=== PATIENT | female | born 1970 | race African-American/Black ===

== ENCOUNTER 2021-01-17 19:30 | Outpatient (CLI) | payer MEDICARE | END 2021-01-17 19:31 | disposition home or self-care (01) | LOC: SLEEPLAB 19:30 | PROVIDERS: ATTEND Physician Assistant | DX: G47.33 Obstructive sleep apnea (adult) (pediatric) (principal); R09.89 Other specified symptoms and signs involving the circulatory and respiratory systems; R53.83 Other fatigue; G47.10 Hypersomnia, unspecified; G47.00 Insomnia, unspecified; R06.83 Snoring; I10 Essential (primary) hypertension; E11.9 Type 2 diabetes mellitus without complications; E66.9 Obesity, unspecified; Z68.39 Body mass index [BMI] 39.0-39.9, adult | CPT/HCPCS: 95810 ==

== ENCOUNTER 2023-03-09 13:50 | Outpatient (CLI) | payer MEDICARE | END 2023-03-09 13:51 | disposition home or self-care (01) | LOC: RAD 13:50 | PROVIDERS: ATTEND Student in an Organized Health Care Education/Training Program | DX: J98.59 Other diseases of mediastinum, not elsewhere classified (principal) | CPT/HCPCS: 71046 ==

== ENCOUNTER 2023-03-16 14:30 | Outpatient (CLI) | payer MEDICARE | END 2023-03-16 14:31 | disposition home or self-care (01) | LOC: LABBT 14:30 | PROVIDERS: ATTEND Student in an Organized Health Care Education/Training Program | DX: Z01.818 Encounter for other preprocedural examination (principal); J98.59 Other diseases of mediastinum, not elsewhere classified | CPT/HCPCS: 80048; 85027; 86850; 86900; 86901; 93005; 93010 ==

== ENCOUNTER 2023-03-16 14:30 | Inpatient (IN) | payer MEDICARE ==
[2023-03-16 16:57] LABS: Hematocrit 33.7 % (34.9-44.5); Hemoglobin 10.6 g/dL (12.0-15.5); Mean Corpuscular HGB CONC 31.5 g/dL (32.0-36.0); Mean Corpuscular Hemoglobin 25.7 pg (27.0-33.0); Mean Corpuscular Volume 81.6 fl (81.6-98.3); Mean Platelet Volume 10.2 fl (7.4-10.4); Platelet Count 417 10x3/uL (150-450); Red Blood Cell (RBC) Count 4.13 10x6/uL (3.90-5.03); White Blood Cell (WBC) Count 5.7 10x3/uL (3.5-10.5)
[2023-03-16 17:21] LABS: Anion Gap 15 mmol/L (10-20); BUN (Urea Nitrogen) 16 mg/dL (9.8-20.1); Calc. Creatinine Clearance 0 mL/min (70-130); Calcium 8.5 mg/dL (7.8-10.44); Carbon Dioxide 26 mmol/L (22-29); Chloride 104 mmol/L (98-107); Estimated GFR 59; Glucose 70 mg/dL (70-105); Sodium 141 mmol/L (136-145)
[2023-03-18] MEDS ORDERED: EPINEPHrine 1 MG/ML VIAL ONE (12:02)
[2023-03-18] MEDS ORDERED: Bupivacaine 0.25% HCL 30 ML VIAL ONE (12:02)
[2023-03-18] MEDS ORDERED: Sodium Chloride 0.9% 100 ML ONE (12:17)
[2023-03-18] MEDS ORDERED: CEFAZOLIN 2 GM VIAL ONE (12:17)
[2023-03-18] MEDS ORDERED: Midazolam HCl 2 mg/2 ml Vial ONE (12:20)
[2023-03-18] MEDS ORDERED: fentaNYL 50 mcg/mL 1 mL Vial ONE (12:21)
[2023-03-18] MEDS ORDERED: PROPOFOL 20 ML ONE ×2 (12:28→14:43)
[2023-03-18] MEDS ORDERED: SUCCINYLCHOLINE/SOD CL,ISO/PF 200 MG/10 ML SYRINGE FS ONE (12:40)
[2023-03-18] MEDS ORDERED: Promethazine HCl 25 MG/ML VIAL IM PRN ×2 (13:05→18:30)
[2023-03-18] MEDS ORDERED: Ondansetron HCl/PF 4 MG/2 ML Vial IVP PRN (13:05)
[2023-03-18] MEDS ORDERED: PHENYLEPHRINE-NS 100 MCG/ML 10 ML SYRINGE ONE (13:08)
[2023-03-18] MEDS ORDERED: fentaNYL PF 100 MCG/2 ML SYRINGE ONE ×3 (13:14→15:22)
[2023-03-18] MEDS ORDERED: Rocuronium Bromide 10 MG/ML (10ML VIAL) ONE (13:20)
[2023-03-18] MEDS ORDERED: Albumin 5% 500 ML ONE (13:21)
[2023-03-18] MEDS ORDERED: SUGAMMADEX SODIUM 200 MG/2 ML VIAL ONE ×2 (14:59)
[2023-03-18] MEDS ORDERED: Dexamethasone 20 MG/5 ML VIAL ONE (15:32)
[2023-03-18] MEDS ORDERED: Mineral Oil ENEMA PR PRN (15:32)
[2023-03-18] MEDS ORDERED: Milk Of Magnesia 30 ML UDCUP PO PRN (15:32)
[2023-03-18] MEDS ORDERED: Ondansetron PF 4 MG/2 ML Vial IVP PRN ×2 (15:32→18:30)
[2023-03-18] MEDS ORDERED: Bisacodyl 10 MG SUPP PR PRN (15:32)
[2023-03-18] MEDS ORDERED: traMADol HCl 50 MG TAB PO PRN ×2 (15:32)
[2023-03-18] MEDS ORDERED: Ondansetron PF 4 MG/2 ML Vial ONE (15:32)
[2023-03-18] MEDS ORDERED: Fentanyl 250 MCG/5 ML VIAL ONE (15:45)
[2023-03-18] MEDS ORDERED: Morphine 2 MG/ML VIAL ONE ×3 (16:18→16:56)
[2023-03-18] MEDS ORDERED: Ketorolac Tromethamine 30 MG (1 mL) VIAL ONE (16:37)
[2023-03-18] MEDS: Ketorolac Tromethamine 30 MG (1 mL) VIAL IVP SCH ×2 (16:40→23:23)
[2023-03-18 16:43] LABS: #Eosinphils 0.1 thou/uL (0.0-0.7); #Monocytes 0.6 thou/uL (0.11-0.59); #Neutrophils 10.1 thou/uL (1.40-6.50); %Basophils 0.3 % (0.0-1.0); %Eosinophils 0.6 % (0.0-10.0); %Lymphocytes 11.7 % (21.0-51.0); %Monocytes 4.6 % (0.0-10.0); %Neutrophils 82.4 % (42.0-75.0); Hematocrit 30.5 % (36.0-47.0); Hemoglobin 9.5 g/dL (12.0-16.0); Mean Corpuscular HGB CONC 31.1 g/dL (32.0-36.0); Mean Corpuscular Hemoglobin 25.9 pg (27.0-31.0); Mean Corpuscular Volume 83.1 fl (78.0-98.0); Mean Platelet Volume 9.7 fL (7.4-10.4); Platelet Count 380 10x3/uL (130-400); RBC Distribution Width 16.9 % (11.5-14.5); Red Blood Cell (RBC) Count 3.67 mill/uL (4.20-5.40); White Blood Cell (WBC) Count 12.3 10x3/uL (4.8-10.8)
[2023-03-18] MEDS ORDERED: Lidocaine 4% Patch TD SCH (16:45)
[2023-03-18 17:04] LABS: Anion Gap 14 mmol/L (10-20); BUN (Urea Nitrogen) 8 mg/dL (9.8-20.1); Calc. Creatinine Clearance 129 mL/min (70-130); Calcium 7.9 mg/dL (7.8-10.44); Carbon Dioxide 21 mmol/L (22-29); Chloride 108 mmol/L (98-107); Estimated GFR 88; Glucose 129 mg/dL (70-105); Potassium 3.5 mmol/L (3.5-5.1); Sodium 139 mmol/L (136-145)
[2023-03-18] MEDS ORDERED: HYDROmorphone 0.5 MG/0.5 ML SYRINGE ONE ×2 (17:09→17:39)
[2023-03-18] MEDS ORDERED: Methocarbamol 500 MG TAB PO SCH (18:15)
[2023-03-18] MEDS ORDERED: Gabapentin 300 MG CAP PO SCH (18:15)
[2023-03-18] MEDS ORDERED: Gabapentin 300 MG CAP ONE (18:22)
[2023-03-18] MEDS ORDERED: Acetaminophen 500 MG TAB ONE (18:25)
[2023-03-18] MEDS ORDERED: diphenhydrAMINE 25 MG CAP PO PRN (18:30)
[2023-03-18] MEDS ORDERED: diphenhydrAMINE 50 MG/ML VIAL IM/IV PRN (18:30)
[2023-03-18] MEDS ORDERED: Zolpidem Tartrate 5 MG TAB PO PRN (18:30)
[2023-03-18] MEDS ORDERED: Naloxone HCl 0.4 mg/ml Vial IV PRN (18:30)
[2023-03-18] MEDS: Acetaminophen 500 MG TAB PO SCH ×2 (18:33→23:23)
[2023-03-18] MEDS: Ipratropium/Albuterol 3 ML NEB NEB SCH (18:49)
[2023-03-18] MEDS ORDERED: Pregabalin 75 MG CAP PO SCH (21:00)
[2023-03-18] MEDS: CEFAZOLIN 2 GM in Sodium Chloride 0.9% 100 ML IVPB SCH (22:41)
[2023-03-18] MEDS: Heparin 5,000 UNITS/ML VIAL SC SCH (22:41)
[2023-03-18] MEDS: Oxybutynin 5 MG TAB PO SCH (22:42)
[2023-03-18] MEDS: D5 0.9% NS w/ 20 mEq KCl 1,000 ML IV SCH (22:42)
[2023-03-19] MEDS: Ipratropium/Albuterol 3 ML NEB NEB SCH ×5 (00:04→23:03)
[2023-03-19] MEDS: CEFAZOLIN 2 GM in Sodium Chloride 0.9% 100 ML IVPB SCH ×2 (03:44→11:12)
[2023-03-19] MEDS: Fentanyl CADD 100 ML IVPB SCH ×2 (03:50→09:20)
[2023-03-19] MEDS: D5 0.9% NS w/ 20 mEq KCl 1,000 ML IV SCH (05:47)
[2023-03-19 05:48] LABS: #Monocytes 0.8 thou/uL (0.11-0.59); #Neutrophils 9.9 thou/uL (1.40-6.50); %Basophils 0.1 % (0.0-1.0); %Monocytes 6.7 % (0.0-10.0); %Neutrophils 84.7 % (42.0-75.0); Hematocrit 30.1 % (36.0-47.0); Hemoglobin 9.4 g/dL (12.0-16.0); Mean Corpuscular HGB CONC 31.2 g/dL (32.0-36.0); Mean Corpuscular Hemoglobin 25.3 pg (27.0-31.0); Mean Corpuscular Volume 81.1 fl (78.0-98.0); Platelet Count 400 10x3/uL (130-400); RBC Distribution Width 16.8 % (11.5-14.5); Red Blood Cell (RBC) Count 3.71 mill/uL (4.20-5.40); White Blood Cell (WBC) Count 11.7 10x3/uL (4.8-10.8)
[2023-03-19] MEDS ORDERED: Transdermal Patch Removal TOP SCH ×2 (06:00→19:30)
[2023-03-19 06:16] LABS: Anion Gap 13 mmol/L (10-20); BUN (Urea Nitrogen) 10 mg/dL (9.8-20.1); Calc. Creatinine Clearance 123 mL/min (70-130); Calcium 7.8 mg/dL (7.8-10.44); Carbon Dioxide 21 mmol/L (22-29); Chloride 104 mmol/L (98-107); Estimated GFR 83; Glucose 141 mg/dL (70-105); Potassium 3.9 mmol/L (3.5-5.1); Sodium 134 mmol/L (136-145)
[2023-03-19] MEDS: Ketorolac Tromethamine 30 MG (1 mL) VIAL IVP SCH ×4 (06:17→23:53)
[2023-03-19] MEDS: Acetaminophen 500 MG TAB PO SCH ×4 (06:18→23:54)
[2023-03-19] MEDS: Levothyroxine Sodium 75 MCG TAB PO SCH (06:18)
[2023-03-19] MEDS: Methocarbamol 500 MG TAB PO SCH ×4 (08:22→20:48)
[2023-03-19] MEDS: Gabapentin 300 MG CAP PO SCH ×3 (08:23→20:47)
[2023-03-19] MEDS: DULoxetine 60 MG CAP PO SCH (08:24)
[2023-03-19] MEDS: Heparin 5,000 UNITS/ML VIAL SC SCH ×3 (08:24→20:48)
[2023-03-19] MEDS: Oxybutynin 5 MG TAB PO SCH ×3 (08:24→20:48)
[2023-03-19] MEDS ORDERED: SALMETEROL INH SCH (09:00)
[2023-03-19] MEDS ORDERED: FLUTICASONE INH SCH (09:00)
[2023-03-19] MEDS: oxyCODONE 5 MG TAB PO PRN ×3 (14:14→22:34)
[2023-03-19] MEDS: Mometasone 200 MCG/Formoterol 5 MCG 120 PUFF INHALER INH SCH (19:07)
[2023-03-19] MEDS: Lidocaine 4% Patch TD SCH (20:47)
[2023-03-19 22:43] VITALS: BMI 42.0
[2023-03-20] MEDS: Ketorolac Tromethamine 30 MG (1 mL) VIAL IVP SCH ×4 (05:18→23:13)
[2023-03-20] MEDS: Acetaminophen 500 MG TAB PO SCH ×4 (05:18→23:14)
[2023-03-20] MEDS: Levothyroxine Sodium 75 MCG TAB PO SCH (05:19)
[2023-03-20] MEDS: Mometasone 200 MCG/Formoterol 5 MCG 120 PUFF INHALER INH SCH ×2 (06:55→19:04)
[2023-03-20] MEDS: Ipratropium/Albuterol 3 ML NEB NEB SCH ×4 (06:56→23:38)
[2023-03-20] MEDS: DULoxetine 60 MG CAP PO SCH (08:21)
[2023-03-20] MEDS: Oxybutynin 5 MG TAB PO SCH ×3 (08:21→21:27)
[2023-03-20] MEDS: Gabapentin 300 MG CAP PO SCH ×3 (08:21→21:28)
[2023-03-20] MEDS: oxyCODONE 5 MG TAB PO PRN ×3 (08:22→21:26)
[2023-03-20] MEDS: Methocarbamol 500 MG TAB PO SCH ×4 (08:22→21:27)
[2023-03-20] MEDS: Heparin 5,000 UNITS/ML VIAL SC SCH ×3 (08:23→21:25)
[2023-03-20] MEDS: Transdermal Patch Removal TOP SCH (09:30)
[2023-03-20] MEDS ORDERED: Lactulose 20 GM (30 mL) UDCUP PO SCH (14:30)
[2023-03-20] MEDS: Lidocaine 4% Patch TD SCH (21:24)
[2023-03-21] MEDS: Ketorolac Tromethamine 30 MG (1 mL) VIAL IVP SCH (04:06)
[2023-03-21] MEDS: Acetaminophen 500 MG TAB PO SCH (04:07)
[2023-03-21] MEDS: oxyCODONE 5 MG TAB PO PRN (04:08)
[2023-03-21] MEDS: Levothyroxine Sodium 75 MCG TAB PO SCH (04:08)
[2023-03-21] MEDS: Ipratropium/Albuterol 3 ML NEB NEB SCH ×2 (08:11→13:00)
[2023-03-21] MEDS: Mometasone 200 MCG/Formoterol 5 MCG 120 PUFF INHALER INH SCH (08:11)
[2023-03-21] MEDS: Methocarbamol 500 MG TAB PO SCH (09:33)
[2023-03-21] MEDS: Oxybutynin 5 MG TAB PO SCH (09:33)
[2023-03-21] MEDS: DULoxetine 60 MG CAP PO SCH (09:33)
[2023-03-21] MEDS: Gabapentin 300 MG CAP PO SCH (09:33)
[2023-03-21] MEDS: Heparin 5,000 UNITS/ML VIAL SC SCH (09:34)
[2023-03-21] MEDS: Transdermal Patch Removal TOP SCH (09:36)
[2023-03-21 12:17] VITALS: BP 162/96; TEMP 98.4
== END 2023-03-21 13:27 | disposition home or self-care (01) | DRG 165 ==
LOC: SURG A 03-18 09:59 → EDSTATUS 03-18 14:30 → 2NO 03-18 20:32
PROVIDERS: ADMIT Student in an Organized Health Care Education/Training Program; ATTEND Student in an Organized Health Care Education/Training Program
PROC: 07BM4ZZ Excision of Thymus, Percutaneous Endoscopic Approach (ICD-10-PCS; principal; 2023-03-18)
PROC: 8E0W4CZ Robotic Assisted Procedure of Trunk Region, Percutaneous Endoscopic Approach (ICD-10-PCS; 2023-03-18)
PROC: 3E033XZ Introduction of Vasopressor into Peripheral Vein, Percutaneous Approach (ICD-10-PCS; 2023-03-18)
PROC: 30233J1 Transfusion of Nonautologous Serum Albumin into Peripheral Vein, Percutaneous Approach (ICD-10-PCS; 2023-03-18)
PROC: 07B74ZX Excision of Thorax Lymphatic, Percutaneous Endoscopic Approach, Diagnostic (ICD-10-PCS; 2023-03-18)
DX: J98.59 Other diseases of mediastinum, not elsewhere classified (principal); E11.9 Type 2 diabetes mellitus without complications; E04.1 Nontoxic single thyroid nodule; G47.30 Sleep apnea, unspecified; E03.9 Hypothyroidism, unspecified; M54.9 Dorsalgia, unspecified; T80.89XA Other complications following infusion, transfusion and therapeutic injection, initial encounter; R33.9 Retention of urine, unspecified; G89.29 Other chronic pain; N32.89 Other specified disorders of bladder; Z98.890 Other specified postprocedural states; Z82.49 Family history of ischemic heart disease and other diseases of the circulatory system; Z83.3 Family history of diabetes mellitus; Y83.8 Other surgical procedures as the cause of abnormal reaction of the patient, or of later complication, without mention of misadventure at the time of the procedure
CPT/HCPCS: 36415; 36416; 71045; 80048; 85025; 85027; 86850; 86900; 86901; 88184; 88305; 88307; 94640; 94664; J0171; J0665; J1100; J1170; J1644; J1885; J2250; J2272; J2405; J2704; J3010; J3480; J3490; J7620; P9045

== ENCOUNTER 2023-03-25 14:00 | Inpatient (IN) | payer MEDICARE ==
[~2023-03-25 14:00] MED LIST: Iopamidol-370 76% 500 ML MDV (1 ML CHARGE) ONE
[2023-03-25 14:28] LABS: #Basophils 0.1 thou/uL (0.0-0.2); #Eosinphils 0.3 thou/uL (0.0-0.7); #Monocytes 0.7 thou/uL (0.11-0.59); #Neutrophils 7.3 thou/uL (1.40-6.50); %Basophils 0.5 % (0.0-1.0); %Eosinophils 3.1 % (0.0-10.0); %Lymphocytes 15.6 % (21.0-51.0); %Monocytes 6.7 % (0.0-10.0); %Neutrophils 73.4 % (42.0-75.0); Hematocrit 34.1 % (36.0-47.0); Hemoglobin 10.7 g/dL (12.0-16.0); Mean Corpuscular HGB CONC 31.4 g/dL (32.0-36.0); Mean Corpuscular Hemoglobin 25.2 pg (27.0-31.0); Mean Corpuscular Volume 80.4 fl (78.0-98.0); Mean Platelet Volume 9.9 fL (7.4-10.4); Platelet Count 380 10x3/uL (130-400); RBC Distribution Width 17.4 % (11.5-14.5); Red Blood Cell (RBC) Count 4.24 mill/uL (4.20-5.40); White Blood Cell (WBC) Count 9.9 10x3/uL (4.8-10.8)
[2023-03-25 14:54] LABS: ALT (SGPT) 11 U/L (8-55); AST (SGOT) 16 U/L (5-34); Albumin 3.5 g/dL (3.5-5.0); Alkaline Phosphatase 80 U/L (40-110); Anion Gap 14 mmol/L (10-20); BUN (Urea Nitrogen) 10 mg/dL (9.8-20.1); Bilirubin, Total 0.5 mg/dL (0.2-1.2); Calc. Creatinine Clearance 0 mL/min (70-130); Calcium 9.5 mg/dL (7.8-10.44); Carbon Dioxide 27 mmol/L (22-29); Chloride 97 mmol/L (98-107); Estimated GFR 85; Globulin 3.5 g/dL (2.4-3.5); Glucose 79 mg/dL (70-105); Magnesium 1.6 mg/dL (1.6-2.6); Potassium 4.1 mmol/L (3.5-5.1); Sodium 134 mmol/L (136-145)
[2023-03-25 14:57] LABS: Troponin I Less than 0.010 ng/mL (< 0.028)
[2023-03-25] MEDS ORDERED: Ondansetron PF 4 MG/2 ML Vial ONE (15:47)
[2023-03-25] MEDS ORDERED: Morphine 4 MG/ML VIAL ONE ×2 (15:47→18:17)
[2023-03-25] MEDS ORDERED: Sodium Chloride 0.9% 100 ML ONE (18:18)
[2023-03-25] MEDS ORDERED: Cefepime 2 GM VIAL ONE (18:18)
[2023-03-25] MEDS ORDERED: Dextrose 5% in Water 1,000 ML IV PRN (18:39)
[2023-03-25] MEDS ORDERED: HumaLOG 300 UNITS/3 ML VIAL SC PRN (18:39)
[2023-03-25] MEDS ORDERED: Glucagon 1 MG/ML KIT IM PRN (18:39)
[2023-03-25] MEDS ORDERED: Ondansetron PF 4 MG/2 ML Vial IVP PRN (18:39)
[2023-03-25] MEDS ORDERED: Ondansetron ODT 4 MG TAB PO PRN (18:39)
[2023-03-25] MEDS ORDERED: Dextrose 50% Abboject 50 ML SYRINGE SLOW IVP PRN (18:39)
[2023-03-25] MEDS ORDERED: Vancomycin (BATCH) 2 GM/500 ML BAG ONE (19:11)
[2023-03-25 19:30] LABS: Troponin I Less than 0.010 ng/mL (< 0.028)
[2023-03-25] MEDS ORDERED: Acetaminophen 500 MG TAB ONE (21:23)
[2023-03-25] MEDS ORDERED: Magnesium 2 GM/50 ML BAG (IN WATER) ONE (21:24)
[2023-03-25] MEDS ORDERED: Methocarbamol 500 MG TAB ONE (21:33)
[2023-03-25] MEDS: Acetaminophen 500 MG TAB PO SCH (21:35)
[2023-03-25] MEDS: Doxycycline 100 MG in Sodium Chloride 0.9% 100 ML IVPB SCH (21:36)
[2023-03-25] MEDS: Magnesium 2 GM/50 ML(in water) 2 GM in Premix 1 BAG IVPB SCH (21:36)
[2023-03-25] MEDS: Methocarbamol 500 MG TAB PO SCH (21:36)
[2023-03-25] MEDS: Sodium Chloride 0.9% 1,000 ML IV SCH (21:57)
[2023-03-25] MEDS: Lidocaine 4% Patch TD SCH (23:04)
[2023-03-25] MEDS ORDERED: Ketorolac Tromethamine 30 MG (1 mL) VIAL ONE (23:55)
[2023-03-25] MEDS: Ketorolac Tromethamine 30 MG (1 mL) VIAL IVP SCH (23:58)
[2023-03-26 00:33] LABS: Troponin I Less than 0.010 ng/mL (< 0.028)
[2023-03-26] MEDS: oxyCODONE 5 MG TAB PO PRN (02:08)
[2023-03-26] MEDS ORDERED: Acetaminophen 325 MG TAB ONE (04:17)
[2023-03-26] MEDS: Acetaminophen 325 MG TAB PO PRN (04:18)
[2023-03-26 05:04] LABS: #Basophils 0.1 thou/uL (0.0-0.2); #Eosinphils 0.5 thou/uL (0.0-0.7); #Neutrophils 6.9 thou/uL (1.40-6.50); %Basophils 0.7 % (0.0-1.0); %Eosinophils 4.7 % (0.0-10.0); %Lymphocytes 12.5 % (21.0-51.0); %Monocytes 10.4 % (0.0-10.0); %Neutrophils 70.5 % (42.0-75.0); Hematocrit 32.9 % (36.0-47.0); Hemoglobin 10.1 g/dL (12.0-16.0); Mean Corpuscular HGB CONC 30.7 g/dL (32.0-36.0); Mean Corpuscular Hemoglobin 25.3 pg (27.0-31.0); Mean Corpuscular Volume 82.5 fl (78.0-98.0); Mean Platelet Volume 9.6 fL (7.4-10.4); Platelet Count 390 10x3/uL (130-400); RBC Distribution Width 17.3 % (11.5-14.5); Red Blood Cell (RBC) Count 3.99 mill/uL (4.20-5.40); White Blood Cell (WBC) Count 9.8 10x3/uL (4.8-10.8)
[2023-03-26 05:28] LABS: Anion Gap 14 mmol/L (10-20); BUN (Urea Nitrogen) 10 mg/dL (9.8-20.1); Calc. Creatinine Clearance 136 mL/min (70-130); Calcium 8.6 mg/dL (7.8-10.44); Carbon Dioxide 22 mmol/L (22-29); Chloride 102 mmol/L (98-107); Estimated GFR 93; Glucose 73 mg/dL (70-105); Potassium 3.6 mmol/L (3.5-5.1); Sodium 134 mmol/L (136-145)
[2023-03-26] MEDS ORDERED: Ketorolac Tromethamine 30 MG (1 mL) VIAL ONE (05:58)
[2023-03-26] MEDS ORDERED: cefTRIAXone (ROCEPHIN) 1 GM VIAL ONE (05:59)
[2023-03-26] MEDS: cefTRIAXone\\ROCEPHIN 1 GM in Sodium Chloride 0.9% 100 ML IVPB SCH (06:09)
[2023-03-26] MEDS ORDERED: Enoxaparin 40 MG (0.4 mL) SYRINGE ONE (07:47)
[2023-03-26] MEDS ORDERED: Methocarbamol 500 MG TAB ONE (07:51)
[2023-03-26] MEDS ORDERED: Gabapentin 300 MG CAP ONE (07:56)
[2023-03-26] MEDS ORDERED: HYDROmorphone 0.5 MG/0.5 ML SYRINGE SLOW IVP SCH (08:00)
[2023-03-26] MEDS ORDERED: Lactulose 20 GM (30 mL) UDCUP ONE (08:02)
[2023-03-26] MEDS ORDERED: Lidocaine 4% Patch TD SCH (09:00)
[2023-03-26] MEDS: Enoxaparin 40 MG (0.4 mL) SYRINGE SC SCH (09:03)
[2023-03-26] MEDS: Gabapentin 300 MG CAP PO SCH (09:03)
[2023-03-26] MEDS: Transdermal Patch Removal TOP SCH (09:03)
[2023-03-26] MEDS: Lactulose 20 GM (30 mL) UDCUP PO SCH (09:04)
[2023-03-26] MEDS ORDERED: Metoprolol Tartrate 5 MG (5 mL) VIAL IVP PRN (09:13)
[2023-03-26] MEDS ORDERED: Senokot S 8.6-50 MG TAB ONE (09:33)
[2023-03-26] MEDS ORDERED: Polyethylene Glycol 3350 17 GM Packet ONE (09:33)
[2023-03-26] MEDS: Senokot S 8.6-50 MG TAB PO SCH (09:39)
[2023-03-26] MEDS: Polyethylene Glycol 3350 17 GM Packet PO SCH (09:39)
[2023-03-26] MEDS: Acetaminophen 500 MG TAB PO SCH (09:40)
[2023-03-26] MEDS ORDERED: Acetaminophen 500 MG TAB ONE (09:40)
[2023-03-26] MEDS ORDERED: Lisinopril 20 MG TAB ONE (09:46)
[2023-03-26] MEDS ORDERED: Morphine 4 MG/ML VIAL ONE (10:25)
[2023-03-26] MEDS: Hydrochlorothiazide 25 MG TAB PO SCH (10:27)
[2023-03-26] MEDS: Lisinopril 20 MG TAB PO SCH (10:27)
[2023-03-26] MEDS ORDERED: Morphine 2 MG/ML VIAL ONE (10:29)
[2023-03-26] MEDS: Morphine 2 MG/ML VIAL SLOW IVP PRN (10:30)
[2023-03-26 11:29] LABS: Legionella Urinary Ag Negative (Negative); Strep pneumo Urine Ag NEGATIVE (NEGATIVE)
[2023-03-26] MEDS: Lorazepam 0.5 MG TAB PO PRN (13:13)
[2023-03-26] MEDS ORDERED: Albuterol 2.5 MG (3 mL) NEB NEB PRN (15:25)
[2023-03-26] MEDS ORDERED: Albuterol 200 PUFF (6.7GM INHALER) INH PRN (15:25)
[2023-03-26] MEDS: Benzonatate 100 MG CAP PO PRN (15:29)
[2023-03-26] MEDS: Cefepime 2 GM in Sodium Chloride 0.9% 100 ML IVPB SCH (17:14)
[2023-03-26] MEDS ORDERED: Non-Formulary Item 1 EACH (Lisinopril/Hydrochlorothiazide [Lisinopril-Hctz 20-12.5 Mg Tab PO SCH (21:00)
[2023-03-26] MEDS: Doxycycline 100 MG CAP PO SCH (21:19)
[2023-03-26] MEDS: Oxybutynin 5 MG TAB PO SCH (21:20)
[2023-03-26] MEDS: Mometasone 200 MCG/Formoterol 5 MCG 120 PUFF INHALER INH SCH (22:21)
[2023-03-27] MEDS: oxyCODONE 5 MG TAB PO PRN (00:17)
[2023-03-27] MEDS: Budesonide 0.5 MG/2 ML NEB INH SCH (06:44)
[2023-03-27 06:48] LABS: #Eosinphils 0.3 thou/uL (0.0-0.7); #Monocytes 0.7 thou/uL (0.11-0.59); #Neutrophils 9.6 thou/uL (1.40-6.50); %Basophils 0.3 % (0.0-1.0); %Eosinophils 2.7 % (0.0-10.0); %Lymphocytes 8.3 % (21.0-51.0); %Monocytes 5.9 % (0.0-10.0); %Neutrophils 81.6 % (42.0-75.0); Hematocrit 31.3 % (36.0-47.0); Hemoglobin 9.7 g/dL (12.0-16.0); Mean Corpuscular Hemoglobin 25.5 pg (27.0-31.0); Mean Corpuscular Volume 82.4 fl (78.0-98.0); Mean Platelet Volume 9.9 fL (7.4-10.4); Platelet Count 405 10x3/uL (130-400); RBC Distribution Width 17.2 % (11.5-14.5); White Blood Cell (WBC) Count 11.7 10x3/uL (4.8-10.8)
[2023-03-27 07:32] LABS: Anion Gap 12 mmol/L (10-20); BUN (Urea Nitrogen) 7 mg/dL (9.8-20.1); Calc. Creatinine Clearance 152 mL/min (70-130); Calcium 8.3 mg/dL (7.8-10.44); Carbon Dioxide 25 mmol/L (22-29); Chloride 98 mmol/L (98-107); Estimated GFR 105; Glucose 126 mg/dL (70-105); Potassium 2.9 mmol/L (3.5-5.1); Sodium 132 mmol/L (136-145)
[2023-03-27] MEDS: DULoxetine 60 MG CAP PO SCH (08:24)
[2023-03-27] MEDS: Potassium Chloride 20 MEQ TAB PO SCH (08:26)
[2023-03-27] MEDS: Cefepime 2 GM in Sodium Chloride 0.9% 100 ML IVPB SCH (11:44)
[2023-03-27] MEDS: Sodium Chloride 0.9% 100 ML ONE (12:48)
[2023-03-28] MEDS: HumaLOG 300 UNITS/3 ML VIAL SC PRN (17:14)
[2023-03-28 17:55] LABS: #Basophils 0.1 thou/uL (0.0-0.2); #Eosinphils 0.5 thou/uL (0.0-0.7); #Monocytes 0.5 thou/uL (0.11-0.59); #Neutrophils 4.2 thou/uL (1.40-6.50); %Basophils 0.7 % (0.0-1.0); %Eosinophils 7.9 % (0.0-10.0); %Lymphocytes 20.7 % (21.0-51.0); %Monocytes 7.7 % (0.0-10.0); %Neutrophils 62.1 % (42.0-75.0); Hematocrit 30.4 % (36.0-47.0); Hemoglobin 9.3 g/dL (12.0-16.0); Mean Corpuscular HGB CONC 30.6 g/dL (32.0-36.0); Mean Corpuscular Hemoglobin 25.9 pg (27.0-31.0); Mean Corpuscular Volume 84.7 fl (78.0-98.0); Mean Platelet Volume 10.2 fL (7.4-10.4); Platelet Count 424 10x3/uL (130-400); RBC Distribution Width 17.2 % (11.5-14.5); Red Blood Cell (RBC) Count 3.59 mill/uL (4.20-5.40); White Blood Cell (WBC) Count 6.7 10x3/uL (4.8-10.8)
[2023-03-28 18:24] LABS: ALT (SGPT) 10 U/L (8-55); AST (SGOT) 16 U/L (5-34); Albumin 3.2 g/dL (3.5-5.0); Alkaline Phosphatase 70 U/L (40-110); Anion Gap 12 mmol/L (10-20); BUN (Urea Nitrogen) 15 mg/dL (9.8-20.1); Bilirubin, Total 0.2 mg/dL (0.2-1.2); Calc. Creatinine Clearance 126 mL/min (70-130); Calcium 8.7 mg/dL (7.8-10.44); Carbon Dioxide 22 mmol/L (22-29); Chloride 105 mmol/L (98-107); Estimated GFR 85; Globulin 2.8 g/dL (2.4-3.5); Glucose 129 mg/dL (70-105); Potassium 3.5 mmol/L (3.5-5.1); Sodium 135 mmol/L (136-145)
[2023-03-28] MEDS: Losartan 25 MG TAB PO SCH (22:16)
[2023-03-29 07:28] LABS: Anion Gap 11 mmol/L (10-20); BUN (Urea Nitrogen) 17 mg/dL (9.8-20.1); Calc. Creatinine Clearance 134 mL/min (70-130); Calcium 8.7 mg/dL (7.8-10.44); Carbon Dioxide 24 mmol/L (22-29); Chloride 106 mmol/L (98-107); Estimated GFR 92; Glucose 82 mg/dL (70-105); Sodium 137 mmol/L (136-145)
[2023-03-29] MEDS: Ipratropium/Albuterol 3 ML NEB NEB PRN (07:37)
[2023-03-29 07:46] LABS: #Eosinphils 0.5 thou/uL (0.0-0.7); #Monocytes 0.5 thou/uL (0.11-0.59); %Basophils 0.6 % (0.0-1.0); %Eosinophils 7.5 % (0.0-10.0); %Lymphocytes 21.6 % (21.0-51.0); %Monocytes 8.3 % (0.0-10.0); %Neutrophils 61.4 % (42.0-75.0); Hematocrit 30.6 % (36.0-47.0); Hemoglobin 9.5 g/dL (12.0-16.0); Mean Corpuscular Hemoglobin 25.6 pg (27.0-31.0); Mean Corpuscular Volume 82.5 fl (78.0-98.0); Mean Platelet Volume 10.2 fL (7.4-10.4); Platelet Count 429 10x3/uL (130-400); RBC Distribution Width 17.2 % (11.5-14.5); Red Blood Cell (RBC) Count 3.71 mill/uL (4.20-5.40); White Blood Cell (WBC) Count 6.5 10x3/uL (4.8-10.8)
[2023-03-29] MEDS: Guaifenesin DM 100-10/5 ML UDCUP PO PRN (15:51)
[2023-03-29] MEDS: cefTRIAXone\\ROCEPHIN 1 GM in Sodium Chloride 0.9% 100 ML IVPB SCH (20:31)
[2023-03-30 06:04] LABS: #Eosinphils 0.5 thou/uL (0.0-0.7); #Monocytes 0.5 thou/uL (0.11-0.59); #Neutrophils 4.3 thou/uL (1.40-6.50); %Basophils 0.6 % (0.0-1.0); %Eosinophils 7.2 % (0.0-10.0); %Lymphocytes 21.2 % (21.0-51.0); %Monocytes 7.8 % (0.0-10.0); %Neutrophils 62.6 % (42.0-75.0); Hematocrit 30.3 % (36.0-47.0); Hemoglobin 9.3 g/dL (12.0-16.0); Mean Corpuscular HGB CONC 30.7 g/dL (32.0-36.0); Mean Corpuscular Hemoglobin 25.9 pg (27.0-31.0); Mean Corpuscular Volume 84.4 fl (78.0-98.0); Mean Platelet Volume 9.9 fL (7.4-10.4); Platelet Count 457 10x3/uL (130-400); RBC Distribution Width 17.4 % (11.5-14.5); Red Blood Cell (RBC) Count 3.59 mill/uL (4.20-5.40); White Blood Cell (WBC) Count 6.8 10x3/uL (4.8-10.8)
[2023-03-30 06:31] LABS: Anion Gap 12 mmol/L (10-20); BUN (Urea Nitrogen) 20 mg/dL (9.8-20.1); Calc. Creatinine Clearance 128 mL/min (70-130); Calcium 8.7 mg/dL (7.8-10.44); Carbon Dioxide 22 mmol/L (22-29); Chloride 107 mmol/L (98-107); Estimated GFR 87; Glucose 79 mg/dL (70-105); Potassium 3.4 mmol/L (3.5-5.1); Sodium 138 mmol/L (136-145)
[2023-03-31] MEDS: Levothyroxine Sodium 75 MCG TAB PO SCH (05:17)
[2023-03-31 05:58] LABS: #Neutrophils 3.1 thou/uL (1.40-6.50); %Basophils 0.5 % (0.0-1.0); %Eosinophils 10.3 % (0.0-10.0); %Lymphocytes 25.8 % (21.0-51.0); %Monocytes 7.5 % (0.0-10.0); %Neutrophils 55.2 % (42.0-75.0); Hematocrit 30.2 % (36.0-47.0); Hemoglobin 9.1 g/dL (12.0-16.0); Mean Corpuscular HGB CONC 30.1 g/dL (32.0-36.0); Mean Corpuscular Hemoglobin 25.1 pg (27.0-31.0); Mean Corpuscular Volume 83.4 fl (78.0-98.0); Mean Platelet Volume 10.1 fL (7.4-10.4); Platelet Count 469 10x3/uL (130-400); RBC Distribution Width 17.4 % (11.5-14.5); Red Blood Cell (RBC) Count 3.62 mill/uL (4.20-5.40); White Blood Cell (WBC) Count 5.6 10x3/uL (4.8-10.8)
[2023-03-31 05:59] LABS: #Eosinphils 0.6 thou/uL (0.0-0.7); #Monocytes 0.4 thou/uL (0.11-0.59)
[2023-03-31 06:30] LABS: Anion Gap 11 mmol/L (10-20); BUN (Urea Nitrogen) 19 mg/dL (9.8-20.1); Calc. Creatinine Clearance 136 mL/min (70-130); Calcium 8.6 mg/dL (7.8-10.44); Carbon Dioxide 23 mmol/L (22-29); Chloride 110 mmol/L (98-107); Estimated GFR 93; Glucose 84 mg/dL (70-105); Potassium 3.5 mmol/L (3.5-5.1); Sodium 140 mmol/L (136-145)
[2023-03-31] MEDS: Docusate 100 MG CAP PO SCH (09:27)
[2023-03-31 13:45] LABS: ANA Symphony (Qualitative) Negative (Negative); ANA Symphony (Quantitative) 0.1 Ratio (< 0.7 Negative); EliA RAS New Method **** NEW METHOD ****; EliA Vaculitis New Method **** NEW METHOD ****; Jo-1 IgG Antibody Less than 0.3 EliAU/mL (<7 Negative); Mitochondrial Ab 1.1 U/mL (<4 Negative); RNP70 IgG Antibody 0.8 EliAU/mL (<7 Negative); Rheumatoid Factor IgA Antibody 1.8 IU/mL (<14 Negative); Rheumatoid Factor IgM Antibody 1.7 IU/mL (<3.5 Negative); SSA/Ro IgG Antibody Less than 0.4 EliAU/mL (<7 Negative); SSB/La IgG Antibody Less than 0.4 EliAU/mL (<7 Negative); Scleroderma-70 IgG Antibody Less than 0.6 EliAU/mL (<7 Negative); Smith D IgG Antibody 1.6 EliAU/mL (<7 Negative); dsDNA IgG Antibody 0.8 IU/mL (<10 Negative)
[2023-04-01 00:31] LABS: Pregnancy Test - Urine (BHCG) Negative (Negative); Pregu Control Background? CLEAR/WHITE (CLR/WHITE); Pregu Control Bar Appear? YES (CONTROL BAR); Specific Gravity 1.044 (1.002-1.036)
[2023-04-01] MEDS: Fluconazole 100 MG TAB PO SCH ×2 (03:39→04:14)
[2023-04-01 11:47] VITALS: BMI 40.0
[2023-04-01 12:49] LABS: DRVVT Confirm 39.8
[2023-04-01 14:39] LABS: IgG Subclass 1 355 mg/dL (248-810); IgG Subclass 2 195 mg/dL (130-555); IgG Subclass 3 32 mg/dL (15-102); Immunoglobulin - G (Sendout) 660 mg/dL (586-1602)
[2023-04-01] MEDS: Nystatin Cream 15 GM TUBE TOP SCH ×2 (15:27→20:06)
[2023-04-01 18:36] LABS: Cytoplasmic (C-ANCA) <1:20 titer (Neg:<1:20); Myeloperoxidase AutoAbs <0.2 units (0.0-0.9); Perinuclear (P-ANCA) <1:20 titer (Neg:<1:20); Proteinase-3 AutoAbs Less than 0.2 units (0.0-0.9)
[2023-04-02 06:27] LABS: #Basophils 0.1 thou/uL (0.0-0.2); #Eosinphils 0.6 thou/uL (0.0-0.7); #Monocytes 0.4 thou/uL (0.11-0.59); %Basophils 0.9 % (0.0-1.0); %Eosinophils 10.8 % (0.0-10.0); %Lymphocytes 26.2 % (21.0-51.0); %Monocytes 6.9 % (0.0-10.0); %Neutrophils 54.8 % (42.0-75.0); Hematocrit 27.4 % (36.0-47.0); Hemoglobin 8.4 g/dL (12.0-16.0); Mean Corpuscular HGB CONC 30.7 g/dL (32.0-36.0); Mean Corpuscular Hemoglobin 25.7 pg (27.0-31.0); Mean Corpuscular Volume 83.8 fl (78.0-98.0); Mean Platelet Volume 9.5 fL (7.4-10.4); Platelet Count 434 10x3/uL (130-400); RBC Distribution Width 17.4 % (11.5-14.5); Red Blood Cell (RBC) Count 3.27 mill/uL (4.20-5.40); White Blood Cell (WBC) Count 5.5 10x3/uL (4.8-10.8)
[2023-04-02 06:45] LABS: Anion Gap 10 mmol/L (10-20); BUN (Urea Nitrogen) 13 mg/dL (9.8-20.1); Calc. Creatinine Clearance 174 mL/min (70-130); Calcium 8.5 mg/dL (7.8-10.44); Carbon Dioxide 23 mmol/L (22-29); Chloride 110 mmol/L (98-107); Estimated GFR 106; Glucose 105 mg/dL (70-105); Potassium 3.6 mmol/L (3.5-5.1); Sodium 139 mmol/L (136-145)
[2023-04-02 16:47] VITALS: BP 155/93; TEMP 97.8
[2023-04-06] MEDS ORDERED: SEMAGLUTIDE 0.25 MG/0.368 ML SC SCH (09:00)
== END 2023-04-02 18:30 | disposition home or self-care (01) | DRG 193 ==
LOC: ERS 14:00 → 2NO 18:34 → ERHOLD 18:36 → 2NO 03-26 12:13
PROVIDERS: ADMIT Family Medicine; ATTEND Internal Medicine
DX: J18.9 Pneumonia, unspecified organism (principal); J96.01 Acute respiratory failure with hypoxia; Z68.41 Body mass index [BMI] 40.0-44.9, adult; J90 Pleural effusion, not elsewhere classified; E03.9 Hypothyroidism, unspecified; E11.9 Type 2 diabetes mellitus without complications; I10 Essential (primary) hypertension; E66.01 Morbid (severe) obesity due to excess calories; R33.8 Other retention of urine; E87.6 Hypokalemia; G89.29 Other chronic pain; D64.9 Anemia, unspecified; G47.33 Obstructive sleep apnea (adult) (pediatric); J45.909 Unspecified asthma, uncomplicated; K59.09 Other constipation; Z98.890 Other specified postprocedural states; Z99.81 Dependence on supplemental oxygen; Z79.899 Other long term (current) drug therapy; Z79.51 Long term (current) use of inhaled steroids; Z90.49 Acquired absence of other specified parts of digestive tract; Z90.89 Acquired absence of other organs; Z82.49 Family history of ischemic heart disease and other diseases of the circulatory system; Z83.3 Family history of diabetes mellitus
CPT/HCPCS: 36415; 36416; 71045; 71275; 80048; 80053; 81025; 82785; 82787; 83516; 83520; 83605; 83735; 83880; 84145; 84484; 85025; 85613; 86037; 86038; 86140; 86225; 86235; 87040; 87081; 87449; 87899; 93005; 94640; 96365; 96375; 96376; J0692; J0696; J1650; J1885; J2270; J2272; J2405; J3370; J3475; J3490; J7050; J7620; J7626; Q9967

== ENCOUNTER 2024-03-12 18:17 | Inpatient (IN) | payer MEDICARE ==
[2024-03-12 19:27] LABS: #Basophils 0.04 10x3/uL (0.0-0.2); %Basophils 0.9 % (0.0-1.0); %Eosinophils 7.7 % (0.0-10.0); %Monocytes 6.4 % (0.0-10.0); %Neutrophils 50.8 % (42.0-75.0); Hematocrit 43.4 % (36.0-47.0); Hemoglobin 13.8 g/dL (12.0-16.0); Mean Corpuscular HGB CONC 31.8 g/dL (32.0-36.0); Mean Corpuscular Volume 88.2 fL (78.0-98.0); Mean Platelet Volume 10.2 fL (7.4-10.4); Platelet Count 289 10x3/uL (130-400); RBC Distribution Width 13.4 % (11.5-14.5); Red Blood Cell (RBC) Count 4.92 mill/uL (4.20-5.40)
[2024-03-12 19:31] LABS: Troponin I Less than 0.010 ng/mL (< 0.028)
[2024-03-12 19:43] LABS: Lipase 31 U/L (8-78)
[2024-03-12 19:45] LABS: Acetaminophen Less than 10 mcg/mL (Less than 10); Alcohol Less than 10.0 mg/dL (Less than 10); Salicylate Less than 8.0 mg/dL (Less than 8.0)
[2024-03-12 19:47] LABS: ALT (SGPT) Less than 7 U/L (Less than 34); AST (SGOT) 23 U/L (11-34); Albumin 4.1 g/dL (3.1-4.5); Alkaline Phosphatase 103 U/L (40-110); Anion Gap 16 mmol/L (10-20); BUN (Urea Nitrogen) 16 mg/dL (9.8-20.1); Bilirubin, Total 0.4 mg/dL (0.3-1.2); Calc. Creatinine Clearance 0 mL/min (70-130); Calcium 9.7 mg/dL (7.8-10.44); Carbon Dioxide 27 mmol/L (22-29); Chloride 101 mmol/L (98-107); Estimated GFR 49; Globulin 4.2 g/dL (2.4-3.5); Glucose 98 mg/dL (70-105); Potassium 3.6 mmol/L (3.5-5.1); Protein, Total 8.3 g/dL (6.0-8.3); Sodium 140 mmol/L (136-145)
[2024-03-12 22:30] LABS: Lactic Acid 1.08 mmol/L (0.50-2.20)
[2024-03-13] MEDS ORDERED: Sodium Chloride 0.9% 1,000 ML IV SCH (00:15)
[2024-03-13] MEDS ORDERED: Dextrose 50% Abboject 50 ML SYRINGE SLOW IVP PRN (00:17)
[2024-03-13] MEDS ORDERED: Ondansetron ODT 4 MG TAB PO PRN (00:17)
[2024-03-13] MEDS ORDERED: Glucagon 1 MG/ML KIT IM PRN (00:17)
[2024-03-13] MEDS ORDERED: Dextrose 5% in Water 1,000 ML IV PRN (00:17)
[2024-03-13] MEDS ORDERED: Acetaminophen 325 MG TAB PO PRN (00:17)
[2024-03-13] MEDS ORDERED: Insulin Lispro 100 UNIT/ML 10 ML VIAL SC PRN ×2 (00:17)
[2024-03-13] MEDS ORDERED: Ondansetron PF 4 MG/2 ML Vial IVP PRN (00:17)
[2024-03-13 01:05] LABS: Magnesium 2.2 mg/dL (1.6-2.6)
== END 2024-03-13 04:37 | disposition left against medical advice (07) | DRG 71 ==
LOC: ERS 18:17 → ERHOLD 23:11
PROVIDERS: ADMIT Student in an Organized Health Care Education/Training Program; ATTEND Family Medicine
DX: G93.40 Encephalopathy, unspecified (principal); N17.9 Acute kidney failure, unspecified; E11.9 Type 2 diabetes mellitus without complications; E03.9 Hypothyroidism, unspecified; I10 Essential (primary) hypertension; Z98.890 Other specified postprocedural states; Z88.8 Allergy status to other drugs, medicaments and biological substances; Z79.899 Other long term (current) drug therapy
CPT/HCPCS: 36415; 70450; 71045; 71260; 74177; 76705; 80053; 80307; 82140; 83605; 83690; 83735; 83880; 84484; 85025; 87040; 87428; 93005; Q9967